=== PATIENT | female | born 1985 | race Caucasian/White ===

== ENCOUNTER 2017-01-07 08:55 | Inpatient (IN) | payer OTHER ==
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
[2017-01-07] MEDS ORDERED: IV START KIT ONE (09:13)
[2017-01-07] MEDS ORDERED: CEFAZOLIN SODIUM 2 GRAM DUPLEX 50 ML IV ONE (09:14)
[2017-01-07] MEDS ORDERED: LACTATED RINGERS 1,000 ML ONE (09:14)
[2017-01-07 10:00] VITALS: BMI 33.6
[2017-01-07] MEDS ORDERED: FENTANYL 100 MCG/2 ML VIAL ONE (10:41)
[2017-01-07] MEDS ORDERED: MORPHINE SULFATE (DURAMORPH) 1 MG/ML 10ML AMP ONE (10:41)
[2017-01-07] MEDS ORDERED: CEFAZOLIN SODIUM 2 GRAM DUPLEX 2 G in Premix (D5W) 50 ml 1 EACH IV PRN (10:46)
[2017-01-07] MEDS ORDERED: CITRIC ACID/SODIUM CITRATE 15 ML UDCUP PO ONE (10:52)
[2017-01-07] MEDS ORDERED: FAMOTIDINE 10 MG/ML 2ML VIAL ONE (10:52)
[2017-01-07 11:00] LABS: HEMATOCRIT 35.6 % (37.0-47.0); HEMOGLOBIN 12.1 gm/l (12.0-16.0); MEAN CELL VOLUME 90.4 fl (81.0-99.0); MEAN CORPUSCULAR HEMOGLOBIN 30.7 pg (27.0-31.0); RED CELL DISTRIBUTION WIDTH 13.4 % (11.5-14.5)
[2017-01-07] MEDS ORDERED: LACTATED RINGERS 1,000 ML IV SCH (11:00)
[2017-01-07] MEDS ORDERED: EPHEDRINE SULFATE UD SYR 25 MG 25 MG/5 ML SYRINGE IV ONE (11:21)
[2017-01-07] MEDS ORDERED: ONDANSETRON 4 MG/2ML 2 ML VIAL ONE (11:22)
[2017-01-07] MEDS ORDERED: OXYTOCIN 10 UNITS/ML VIAL ONE ×4 (11:38→11:40)
[2017-01-07] MEDS ORDERED: FLU VACC 2016-17 (36MO-64Y)/PF 60 MCG/0.5 ML SYRINGE IM V ONE (11:48)
[2017-01-07] MEDS ORDERED: NALOXONE HCL 0.4 MG/ML VIAL IV PRN (11:50)
[2017-01-07] MEDS ORDERED: ONDANSETRON 4 MG/2ML 2 ML VIAL IV PRN ×2 (11:50→12:13)
[2017-01-07] MEDS ORDERED: MORPHINE SULFATE 2 MG/ML SYRINGE IV PRN (11:50)
[2017-01-07] MEDS ORDERED: MORPHINE SULFATE 10 MG/ML SYRINGE IV PRN (11:50)
[2017-01-07] MEDS ORDERED: NALBUPHINE HCL 20 MG/ML AMP IV PRN (11:50)
[2017-01-07] MEDS ORDERED: MORPHINE SULFATE 4 MG/ML SYRINGE IV PRN (11:50)
[2017-01-07] MEDS ORDERED: DIPHENHYDRAMINE HCL 50 MG/1 ML VIAL IV PRN ×2 (11:50→12:13)
[2017-01-07] MEDS ORDERED: EPHEDRINE SULFATE 50 MG/ML 1ML VIAL IV PRN (11:50)
[2017-01-07] MEDS ORDERED: PROMETHAZINE HCL 25 MG/ML VIAL IM PRN (11:50)
[2017-01-07] MEDS ORDERED: DIPHTH,PERTUSS(ACELL),TET VAC 0.5 ML VIAL IM V ONE (12:13)
[2017-01-07] MEDS ORDERED: DIPHENHYDRAMINE HCL 25 MG CAPSULE PO PRN (12:13)
[2017-01-07] MEDS ORDERED: LANOLIN 50 APPLIC/7G TUBE TP PRN (12:13)
[2017-01-07] MEDS ORDERED: MEASLES,MUMPS&RUBELLA VACCINE 0.5 ML VIAL SUB-Q V ONE (12:13)
[2017-01-07] MEDS: D5LR 1,000 ML IV SCH ×2 (13:49→21:33)
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
[2017-01-07] MEDS: IBUPROFEN 800 MG TABLET PO PRN (20:46)
[2017-01-07] MEDS: OXYCODONE/ACETAMINOPHEN 5/325 MG TABLET PO PRN (20:46)
[2017-01-07] MEDS: DOCUSATE SODIUM 100 MG CAPSULE PO SCH (20:46)
[2017-01-08 07:00] LABS: HEMATOCRIT 31.5 % (37.0-47.0); HEMOGLOBIN 10.6 gm/l (12.0-16.0); MEAN CELL VOLUME 91.8 fl (81.0-99.0); MEAN CORPUSCULAR HEMOGLOBIN 30.9 pg (27.0-31.0); MEAN CORPUSCULAR HGB CONC 33.7 g/dl (33.0-37.0); RED CELL DISTRIBUTION WIDTH 13.7 % (11.5-14.5)
[2017-01-08] MEDS: IBUPROFEN 800 MG TABLET PO PRN ×2 (08:06→17:44)
[2017-01-08] MEDS: DOCUSATE SODIUM 100 MG CAPSULE PO SCH ×2 (08:06→20:04)
[2017-01-08] MEDS: PRENATAL VIT/FE FUMARATE/FA 1 TABLET PO SCH (08:06)
[2017-01-08] MEDS: OXYCODONE/ACETAMINOPHEN 5/325 MG TABLET PO PRN (10:01)
--- NOTE | 2017-01-08 10:04 | PDOC44 ---
- Subjective Day: 1 Reports Pain Tolerable, Reports , Reports Lochia Light - Objective Temp Pulse Resp BP Pulse Ox 98.4 F 86 18 123/75 01/08/17 07:40 01/08/17 07:40 01/08/17 07:40 01/08/17 07:40 Lab Results 01/08/17 01/07/17 06:30 09:40 WBC 13.9 H 12.3 H RBC 3.43 L 3.94 L Hgb 10.6 L 12.1 Hct 31.5 L 35.6 L Plt Count 244 270 Current Medications Generic Name Dose Route Start Last Admin Trade Name Freq PRN Reason Stop Dose Admin Diphenhydramine HCl 25 - 50 mg 01/07/17 12:13 Benadryl PO Q6H PRN Itching (Mild/Moderate) Diphenhydramine HCl 25 - 50 mg 01/07/17 12:13 Benadryl IV Q6H PRN Itching (Severe) Diphenhydramine HCl 25 - 50 mg 01/07/17 11:50 Benadryl IV Q4H PRN Itching Docusate Sodium 100 mg 01/07/17 21:00 01/08/17 08:06 Colace PO 100 mg BID LUPE Administration Emollient Ointment 1 applic 01/07/17 12:13 [id number] TP PRN PRN sore nipples Ephedrine Sulfate 5 - 10 mg 01/07/17 11:50 Ephedrine Sulfate IV Q5M PRN Dextrose/Lactated Ringer's 1,000 mls @ 125 mls/hr 01/07/17 12:13 01/07/17 21:33 D5lr IV Not Given .Q8H LUPE Ibuprofen 800 mg 01/07/17 12:13 01/08/17 08:06 Motrin PO 800 mg Q8H PRN Administration Pain Ketorolac Tromethamine 30 mg 01/07/17 11:50 Toradol IV 01/12/17 11:49 Q6H LUPE Morphine Sulfate 1 - 5 mg 01/07/17 11:50 Morphine Sulfate IV 01/11/17 11:49 Q1H PRN Pain (Breakthrough) Morphine Sulfate 1 - 5 mg 01/07/17 11:50 Morphine Sulfate IV 01/11/17 11:49 Q1H PRN Pain (Breakthrough) Morphine Sulfate 1 - 5 mg 01/07/17 11:50 Morphine Sulfate IV 01/11/17 11:49 Q1H PRN Pain (Breakthrough) Multivi/Iron Carb/Fe Sulf/FA/Prenat 1 tab 01/08/17 09:00 01/08/17 08:06 Plus PO 1 tab DAILY LUPE Administration Nalbuphine HCl 1 - 5 mg 01/07/17 11:50 Nubain IV Q4H PRN Itching Naloxone HCl 0.2 - 0.4 mg 01/07/17 11:50 Narcan IV Q5M PRN Ondansetron HCl 4 mg 01/07/17 12:13 Zofran IV Q6H PRN Nausea/Vomiting Ondansetron HCl 4 mg 01/07/17 11:50 Zofran IV Q6H PRN Nausea/Vomiting Oxycodone/Acetaminophen 1 - 2 tab 01/07/17 12:13 01/08/17 10:01 Percocet 5/325 PO 1 tab Q4H PRN Administration Pain (Moderate) Promethazine HCl 6.25 - 12.5 mg 01/07/17 11:50 Phenergan IM Q4H PRN Nausea/Vomiting Sodium Chloride 10 ml 01/07/17 12:13 01/07/17 20:37 Normal Saline 10ml Flush IV 10 ml PRN PRN Administration IV Flush Sodium Chloride 10 ml 01/07/17 17:00 01/08/17 08:04 Normal Saline 10ml Flush IV 10 ml Q8HR LUPE Administration - Physical Exam General: Afebrile Psych/Mental Status: Mood/Affect Appropriate Breast: Soft Fundus: Firm Abdomen: Normal Bowel Sounds Genitourinary: Normal Female Genitalia Wound PM TECHNICIAN: Dressing Clean/Dry/Intact Disposition: Stable
[2017-01-08] MEDS: KETOROLAC TROMETHAMINE 30 MG/ML 1 ML VIAL IV SCH ×4 (10:12→19:09)
[2017-01-08] MEDS: D5LR 1,000 ML IV SCH ×3 (10:13→21:41)
[2017-01-09] MEDS: KETOROLAC TROMETHAMINE 30 MG/ML 1 ML VIAL IV SCH (02:13)
[2017-01-09] MEDS: IBUPROFEN 800 MG TABLET PO PRN ×2 (03:14→13:23)
[2017-01-09] MEDS: DOCUSATE SODIUM 100 MG CAPSULE PO SCH (09:09)
[2017-01-09] MEDS: PRENATAL VIT/FE FUMARATE/FA 1 TABLET PO SCH (09:09)
[2017-01-09] MEDS: OXYCODONE/ACETAMINOPHEN 5/325 MG TABLET PO PRN ×2 (10:50→18:40)
--- NOTE | 2017-01-09 11:26 | PDOC44 ---
- Subjective Day: 2 Reports Pain Tolerable, Reports , Reports Lochia Light, Reports Tolerating Regular Diet - Objective Temp Pulse Resp BP Pulse Ox 98.1 F 78 18 133/83 01/09/17 08:33 01/09/17 08:33 01/09/17 08:33 01/09/17 08:33 Current Medications Generic Name Dose Route Start Last Admin Trade Name Freq PRN Reason Stop Dose Admin Diphenhydramine HCl 25 - 50 mg 01/07/17 12:13 Benadryl PO Q6H PRN Itching (Mild/Moderate) Diphenhydramine HCl 25 - 50 mg 01/07/17 12:13 Benadryl IV Q6H PRN Itching (Severe) Diphenhydramine HCl 25 - 50 mg 01/07/17 11:50 Benadryl IV Q4H PRN Itching Docusate Sodium 100 mg 01/07/17 21:00 01/09/17 09:09 Colace PO 100 mg BID LUPE Administration Emollient Ointment 1 applic 01/07/17 12:13 [id number] TP PRN PRN sore nipples Ephedrine Sulfate 5 - 10 mg 01/07/17 11:50 Ephedrine Sulfate IV Q5M PRN Ibuprofen 800 mg 01/07/17 12:13 01/09/17 03:14 Motrin PO 800 mg Q8H PRN Administration Pain Morphine Sulfate 1 - 5 mg 01/07/17 11:50 Morphine Sulfate IV 01/11/17 11:49 Q1H PRN Pain (Breakthrough) Morphine Sulfate 1 - 5 mg 01/07/17 11:50 Morphine Sulfate IV 01/11/17 11:49 Q1H PRN Pain (Breakthrough) Morphine Sulfate 1 - 5 mg 01/07/17 11:50 Morphine Sulfate IV 01/11/17 11:49 Q1H PRN Pain (Breakthrough) Multivi/Iron Carb/Fe Sulf/FA/Prenat 1 tab 01/08/17 09:00 01/09/17 09:09 Plus PO 1 tab DAILY LUPE Administration Nalbuphine HCl 1 - 5 mg 01/07/17 11:50 Nubain IV Q4H PRN Itching Naloxone HCl 0.2 - 0.4 mg 01/07/17 11:50 Narcan IV Q5M PRN Ondansetron HCl 4 mg 01/07/17 12:13 Zofran IV Q6H PRN Nausea/Vomiting Ondansetron HCl 4 mg 01/07/17 11:50 Zofran IV Q6H PRN Nausea/Vomiting Oxycodone/Acetaminophen 1 - 2 tab 01/07/17 12:13 01/09/17 10:50 Percocet 5/325 PO 1 tab Q4H PRN Administration Pain (Moderate) Promethazine HCl 6.25 - 12.5 mg 01/07/17 11:50 Phenergan IM Q4H PRN Nausea/Vomiting Sodium Chloride 10 ml 01/07/17 12:13 01/07/17 20:37 Normal Saline 10ml Flush IV 10 ml PRN PRN Administration IV Flush Sodium Chloride 10 ml 01/07/17 17:00 01/09/17 03:14 Normal Saline 10ml Flush IV 10 ml Q8HR LUPE Administration - Physical Exam General: Afebrile Psych/Mental Status: Mood/Affect Appropriate Breast: Soft Fundus: Firm Abdomen: Normal Bowel Sounds Wound TIP INSERTER: Dressing Clean/Dry/Intact Disposition: Stable, Anticipate DC Home Tomorrow
[2017-01-10] MEDS: DOCUSATE SODIUM 100 MG CAPSULE PO SCH ×2 (00:01→09:23)
[2017-01-10] MEDS: IBUPROFEN 800 MG TABLET PO PRN ×2 (00:01→09:24)
[2017-01-10] MEDS: OXYCODONE/ACETAMINOPHEN 5/325 MG TABLET PO PRN ×2 (05:23→09:38)
--- NOTE | 2017-01-10 08:49 | PDOC44 ---
- Subjective Day: 3 Reports Pain Tolerable, Reports , Reports Lochia Light, Reports Tolerating Regular Diet - Objective Temp Pulse Resp BP Pulse Ox 97.8 F 74 18 151/89 01/10/17 02:30 01/09/17 15:29 01/10/17 02:30 01/10/17 02:30 Current Medications Generic Name Dose Route Start Last Admin Trade Name Freq PRN Reason Stop Dose Admin Diphenhydramine HCl 25 - 50 mg 01/07/17 12:13 Benadryl PO Q6H PRN Itching (Mild/Moderate) Diphenhydramine HCl 25 - 50 mg 01/07/17 12:13 Benadryl IV Q6H PRN Itching (Severe) Diphenhydramine HCl 25 - 50 mg 01/07/17 11:50 Benadryl IV Q4H PRN Itching Docusate Sodium 100 mg 01/07/17 21:00 01/10/17 00:01 Colace PO 100 mg BID LUPE Administration Emollient Ointment 1 applic 01/07/17 12:13 Hen-A-Brbrae TP PRN PRN sore nipples Ephedrine Sulfate 5 - 10 mg 01/07/17 11:50 Ephedrine Sulfate IV Q5M PRN Ibuprofen 800 mg 01/07/17 12:13 01/10/17 00:01 Motrin PO 800 mg Q8H PRN Administration Pain Morphine Sulfate 1 - 5 mg 01/07/17 11:50 Morphine Sulfate IV 01/11/17 11:49 Q1H PRN Pain (Breakthrough) Morphine Sulfate 1 - 5 mg 01/07/17 11:50 Morphine Sulfate IV 01/11/17 11:49 Q1H PRN Pain (Breakthrough) Morphine Sulfate 1 - 5 mg 01/07/17 11:50 Morphine Sulfate IV 01/11/17 11:49 Q1H PRN Pain (Breakthrough) Multivi/Iron Carb/Fe Sulf/FA/Prenat 1 tab 01/08/17 09:00 01/09/17 09:09 Plus PO 1 tab DAILY LUPE Administration Nalbuphine HCl 1 - 5 mg 01/07/17 11:50 Nubain IV Q4H PRN Itching Naloxone HCl 0.2 - 0.4 mg 01/07/17 11:50 Narcan IV Q5M PRN Ondansetron HCl 4 mg 01/07/17 12:13 Zofran IV Q6H PRN Nausea/Vomiting Ondansetron HCl 4 mg 01/07/17 11:50 Zofran IV Q6H PRN Nausea/Vomiting Oxycodone/Acetaminophen 1 - 2 tab 01/07/17 12:13 01/10/17 05:23 Percocet 5/325 PO 1 tab Q4H PRN Administration Pain (Moderate) Promethazine HCl 6.25 - 12.5 mg 01/07/17 11:50 Phenergan IM Q4H PRN Nausea/Vomiting Sodium Chloride 10 ml 01/07/17 12:13 01/07/17 20:37 Normal Saline 10ml Flush IV 10 ml PRN PRN Administration IV Flush - Physical Exam General: Afebrile Psych/Mental Status: Mood/Affect Appropriate Breast: Soft Fundus: Firm Abdomen: Normal Bowel Sounds Wound FLOAT PHLEBOTOMIST: Well Approximated Disposition: Stable, Anticipate DC to Home
[2017-01-10] MEDS: PRENATAL VIT/FE FUMARATE/FA 1 TABLET PO SCH (09:23)
[2017-01-10 09:35] VITALS: BP 157/95
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
== END 2017-01-10 14:08 | disposition home or self-care (01) | DRG 766 ==
LOC: FBC 08:55 → EDSTATUS 01-11 16:18
PROVIDERS: ADMIT Obstetrics & Gynecology; ATTEND Obstetrics & Gynecology
PROC: 10D00Z1 Extraction of Products of Conception, Low, Open Approach (ICD-10-PCS; principal; 2017-01-07)
DX: O82 Encounter for cesarean delivery without indication (principal); Z3A.39 39 weeks gestation of pregnancy; Z37.0 Single live birth